=== PATIENT | female | born 1985 | race Caucasian/White ===

== ENCOUNTER 2022-06-22 17:11 | Emergency (ER) | payer SELFPAY ==
[~2022-06-22] VITALS: Ht 172.7 cm; Wt 106.6 kg
[2022-06-22 17:48] VITALS: BP 137/93
--- NOTE | 2022-06-22 17:54 | NUR ---
PT AMB TO BED 4
[2022-06-22] MEDS ORDERED: ACETAMINOPHEN 325 MG TAB PO ONE (19:20)
[2022-06-22 19:35] LABS: BASOPHILS % (AUTO) 0.6 % (0.0-2.0); EOSINOPHILS % (AUTO) 0.4 % (0.0-4.0); HEMATOCRIT 37.4 % (36-48); HEMOGLOBIN 12.7 g/dL (12.0-16.0); LYMPHOCYTES # (AUTO) 1.1 K/uL (2.5-16.5); LYMPHOCYTES % (AUTO) 15.9 % (20.5-51.1); MEAN CORPUSCULAR HEMOGLOBIN 31 pg (27-31); MEAN CORPUSCULAR HGB CONC 34 g/dL (33-37); MEAN CORPUSCULAR VOLUME 91.8 fL (80-94); MONOCYTES # (AUTO) 0.5 K/uL (0.8-1.0); MONOCYTES % (AUTO) 6.9 % (1.7-9.3); NEUTROPHILS # (AUTO) 5.3 K/uL (1.8-7.7); NEUTROPHILS % (AUTO) 76.2 % (42.2-75.2); PLATELET COUNT (AUTO) 249 K/uL (140-450); RED BLOOD CELL COUNT(AUTO) 4.07 MIL/uL (4.20-5.40); RED CELL DISTRIBUTION WIDTH 12.3 % (11.6-13.7); WHITE BLOOD COUNT (AUTO) 6.9 K/uL (4.8-10.8)
--- NOTE | 2022-06-22 19:40 | NUR ---
Patient sitting on bed, awake, chest rise and fall symmetrical, no s/s of distress Addendum: 06/22/22 at 2119 by [email or web address] Patient sitting on bed, A/Ox4, chest rise and fall symmetrical, no s/s of distress
[2022-06-22 20:11] LABS: BILIRUBIN,URINE NEGATIVE (NEGATIVE); BLOOD, URINE 2+ (NEGATIVE); COLOR,URINE YELLOW (YELLOW); LEUKOCYTE ESTERASE ,URINE 1+ (NEGATIVE); NITRITE, URINE POSITIVE (NEGATIVE); UGLUCOSE NEGATIVE (NEGATIVE)
[2022-06-22 20:12] LABS: APPEARANCE,URINE CLOUDY (CLEAR)
--- NOTE | 2022-06-22 20:30 | NUR ---
Patient sitting on bed, awake, chest rise and fall symmetrical, no s/s of distress Addendum: 06/22/22 at 2118 by [email or web address] Patient sitting on bed, A/Ox4, chest rise and fall symmetrical, no s/s of distress
[2022-06-22 20:32] LABS: RBC,URINE 11-20 (MOD) /HPF (0-5); WBC,URINE 20-60 /HPF (0-5)
[2022-06-22] MEDS ORDERED: CEPH-588 PO (21:06)
--- NOTE | 2022-06-22 21:10 | NUR ---
Patient sitting on bed, A/Ox4, chest rise and fall symmetrical, no s/s of distress
[2022-06-22 21:16] VITALS: BP 117/85
== END 2022-06-22 21:19 | disposition home or self-care (01) ==
LOC: MED 17:11
DX: O23.41 Unspecified infection of urinary tract in pregnancy, first trimester (principal); Z3A.11 11 weeks gestation of pregnancy; Z79.899 Other long term (current) drug therapy
CPT/HCPCS: 36415; 76817; 81001; 84702; 85025; 86900; 86901; 87086; 99284; Q0092